=== PATIENT | male | born 1970 | race Caucasian/White ===

== ENCOUNTER 2019-02-10 17:34 | Inpatient (IN) | payer OTHER ==
[~2019-02-10] VITALS: Ht 175.3 cm; Wt 77.6 kg
[2019-02-10 17:35] VITALS: BP 102/55
[2019-02-10 17:49] LABS: HEMATOCRIT 48.6 % (42.0-52.0); HEMOGLOBIN 16.2 gm/dL (14.0-18.0); MCH 30.9 pg (26.0-34.0); MCHC 33.3 g/dL (28.0-37.0); MCV 92.9 fL (80.0-100.0); MPV 10.5 fl. (7.2-11.1); NUCLEATED RBCS 0 /100WBC; PLATELET COUNT* 213 thou/uL (150-400); RBC 5.23 mil/uL (4.50-6.00); RDW-CV 13.6 % (10.5-14.5); WBC 12.7 thou/uL (4.0-11.0)
[2019-02-10 17:59] LABS: APTT 32.9 Seconds (25.0-31.3); INR 1.1; PROTIME 11.6 Seconds (9.20-11.50)
[2019-02-10 18:06] LABS: ANION GAP 15 mmol/L (7-16); BUN 66 mg/dL (7-18); CALCIUM 8.9 mg/dL (8.5-10.1); CHLORIDE 100 mmol/L (98-107); CO2 24 mmol/L (21-32); CREATININE 4.5 mg/dL (0.6-1.3); GLUCOSE 89 mg/dL (70-99); POTASSIUM 5.5 mmol/L (3.5-5.1); SODIUM 139 mmol/L (136-145); TROPONIN-I LEVEL <0.06 ng/mL (<0.06)
[2019-02-10 18:08] LABS: ALBUMIN 2.6 g/dL (3.4-5.0); ALKALINE PHOSPHATASE 96 U/L (46-116); NT-PRO BRAIN NAT PEPTIDE 5718 pg/mL (<300); SGOT 42 U/L (15-37); SGPT 24 U/L (30-65); TOTAL BILIRUBIN 0.6 mg/dL (<0.1-1.0)
[2019-02-10 18:13] LABS: ABSOLUTE EOSINOPHILS 0.1 thou/uL (0.0-0.7); ABSOLUTE LYMPHOCYTES 0.8 thou/uL (0.8-5.3); ABSOLUTE MONOCYTES 0.8 thou/uL (0.0-1.2)
[2019-02-10 18:15] LABS: LARGE PLATELETS RARE; PLATELET ESTIMATE ADEQUATE
[2019-02-10 19:33] LABS: URINE BLOOD 3+ (Negative); URINE GLUCOSE-RANDOM NEGATIVE (Negative); URINE KETONES TRACE (Negative); URINE LEUKOCYTES-REFLEX NEGATIVE (Negative); URINE NITRITE-REFLEX NEGATIVE (Negative); URINE PROTEIN 2+ (Negative); URINE SPECIFIC GRAVITY >= 1.030 (1.005-1.030)
[2019-02-10 19:34] LABS: ICTOTEST (BILI CONFIRMATORY) Negative (Negative); URINE BILIRUBIN 2+ (Negative)
[2019-02-10 19:35] LABS: SQUAMOUS 4-10 Moderate /LPF (0-3); URINE CLARITY CLOUDY; URINE COLOR DARK YELLOW; URINE RBC 3-10 Few /HPF (0-2); URINE WBC-REFLEX 0-5 Rare /HPF (0-5)
[2019-02-10 19:36] LABS: CRYSTALS None Seen /LPF (None Seen); HYALINE CASTS 0-3 Few /LPF (None Seen); MUCUS 0-3 Light strn/LPF (None Seen)
[2019-02-10 20:10] VITALS: BP 109/70
[2019-02-11] VITALS (29 sets, daily range): BP systolic 90–136; BP diastolic 55–74
[2019-02-11 00:09] LABS: CALCIUM 7.2 mg/dL (8.5-10.1); CREATININE 3.6 mg/dL (0.6-1.3)
[2019-02-11 00:11] LABS: POTASSIUM 6.7 mmol/L (3.5-5.1)
[2019-02-11 05:05] LABS: MCH 30.4 pg (26.0-34.0); NUCLEATED RBCS 0 /100WBC
[2019-02-11 05:06] LABS: HEMATOCRIT 44.9 % (42.0-52.0); HEMOGLOBIN 14.5 gm/dL (14.0-18.0); MCHC 32.2 g/dL (28.0-37.0); MCV 94.3 fL (80.0-100.0); MPV 10.5 fl. (7.2-11.1); PLATELET COUNT* 229 thou/uL (150-400); RBC 4.76 mil/uL (4.50-6.00)
[2019-02-11 05:34] LABS: ALBUMIN 1.8 g/dL (3.4-5.0); CALCIUM 7.4 mg/dL (8.5-10.1); CREATININE 4.2 mg/dL (0.6-1.3); TOTAL BILIRUBIN 0.5 mg/dL (<0.1-1.0); TOTAL PROTEIN 5.7 g/dL (6.4-8.2)
[2019-02-11 05:36] LABS: BE -9.9 mmol/L (-2 to +3); PO2 115.3 mmHg (75.0-100.0)
[2019-02-11 05:39] LABS: PCO2 103.4 mmHg (35.0-45.0); pH 6.992 (7.340-7.450)
[2019-02-11 05:43] LABS: POTASSIUM 6.7 mmol/L (3.5-5.1)
[2019-02-11 06:13] LABS: ABSOLUTE EOSINOPHILS 0.1 thou/uL (0.0-0.7); ABSOLUTE LYMPHOCYTES 0.7 thou/uL (0.8-5.3); ABSOLUTE MONOCYTES 0.9 thou/uL (0.0-1.2); ABSOLUTE NEUTROPHILS 11.3 thou/uL (1.6-8.1)
[2019-02-11 06:23] LABS: PLATELET ESTIMATE ADEQUATE
[2019-02-11 06:25] LABS: ANISOCYTOSIS 1+; POIKILOCYTOSIS 1+
[2019-02-11 06:26] LABS: LARGE PLATELETS RARE
[2019-02-11 06:36] LABS: MAGNESIUM 2.5 mg/dL (1.8-2.4); PHOSPHORUS* 12.8 mg/dL (2.5-4.9)
[2019-02-11 06:57] LABS: BE -10.2 mmol/L (-2 to +3)
[2019-02-11 07:00] LABS: PCO2 72.7 mmHg (35.0-45.0); pH 7.082 (7.340-7.450)
[2019-02-11 08:46] LABS: BE -5.9 mmol/L (-2 to +3)
[2019-02-11 08:47] LABS: PCO2 54.9 mmHg (35.0-45.0); PO2 125.4 mmHg (75.0-100.0); pH 7.225 (7.340-7.450)
[2019-02-11 11:32] LABS: CALCIUM 7.3 mg/dL (8.5-10.1); CREATININE 3.8 mg/dL (0.6-1.3)
[2019-02-11 11:33] LABS: POTASSIUM 5.6 mmol/L (3.5-5.1)
[2019-02-11 12:06] LABS: BE -0.4 mmol/L (-2 to +3)
[2019-02-11 12:07] LABS: PCO2 67.9 mmHg (35.0-45.0); pH 7.245 (7.340-7.450)
[2019-02-11 15:28] LABS: BE -2.2 mmol/L (-2 to +3); PCO2 48.5 mmHg (35.0-45.0); PO2 101.3 mmHg (75.0-100.0); pH 7.318 (7.340-7.450)
--- NOTE | 2019-02-11 15:52 | EKG ---
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 TURNER : 1970 Requested By: Jesse Herrera Order Number: [id number] MD: Cas Uribe Measurements Intervals [place] Rate: 120 P: 70 AR: 123 QRS: 75 QRSD: 90 T: 21 QT: 281 QTc: 397 Interpretive Statements Sinus tachycardia Probable left atrial enlargement Borderline low voltage, extremity leads Possible left ventricular hypertrophy No previous ECG available for comparison Electronically Signed On 02-11-2019 15:52:14 CDT by Cas Uribe [email or web address] <ELECTRONICALLY SIGNED> By: Cas Uribe MD, [facility] 02/11/19 1552 1746 1746 Cas Uribe MD, [facility] /EPI
[2019-02-12] VITALS (51 sets, daily range): BP systolic 89–124; BP diastolic 53–76
[2019-02-12 04:19] LABS: ABSOLUTE EOSINOPHILS 0.1 thou/uL (0.0-0.7); ABSOLUTE LYMPHOCYTES 0.4 thou/uL (0.8-5.3); ABSOLUTE MONOCYTES 0.5 thou/uL (0.0-1.2); ABSOLUTE NEUTROPHILS 6.4 thou/uL (1.6-8.1); BASOPHILS 0.2 %; EOSINOPHILS 0.8 %; HEMATOCRIT 38.4 % (42.0-52.0); HEMOGLOBIN 12.9 gm/dL (14.0-18.0); LYMPHOCYTES 5.3 %; MCH 31.1 pg (26.0-34.0); MCHC 33.5 g/dL (28.0-37.0); MONOCYTES 7.1 %; MPV 9.8 fl. (7.2-11.1); NUCLEATED RBCS 0 /100WBC; POLYS 86.6 %; RBC 4.13 mil/uL (4.50-6.00); RDW-CV 14.3 % (10.5-14.5); WBC 7.4 thou/uL (4.0-11.0)
[2019-02-12 04:25] LABS: PLATELET COUNT* 138 thou/uL (150-400)
[2019-02-12 04:43] LABS: ALBUMIN 1.6 g/dL (3.4-5.0); CALCIUM 7.3 mg/dL (8.5-10.1); MAGNESIUM 2.4 mg/dL (1.8-2.4); PHOSPHORUS* 6.4 mg/dL (2.5-4.9); POTASSIUM 4.7 mmol/L (3.5-5.1); TOTAL BILIRUBIN 0.6 mg/dL (<0.1-1.0); TOTAL PROTEIN 5.4 g/dL (6.4-8.2)
[2019-02-12 05:29] LABS: CREATININE 2.6 mg/dL (0.6-1.3)
[2019-02-12 06:00] LABS: BE -5.4 mmol/L (-2 to +3); PCO2 48.5 mmHg (35.0-45.0); PO2 93.5 mmHg (75.0-100.0)
[2019-02-12 06:03] LABS: pH 7.268 (7.340-7.450)
[2019-02-12 13:40] LABS: CALCIUM 7.9 mg/dL (8.5-10.1); CREATININE 2.3 mg/dL (0.6-1.3); POTASSIUM 4.8 mmol/L (3.5-5.1)
--- NOTE | 2019-02-12 13:55 | 2DMMODE ---
[place] [address] 2 D/M-MODE ECHOCARDIOGRAM Name: MARCOS RAMIRES Room: [address] IN [facility]#: [id number] Admission: 02/10/19 Attend Phys: Diane Mari, Discharge: Date of : 68 Date of Service: 02/12/19 1355 Report #: [id number] THIS REPORT FOR: //name// APPROVED REPORT Study performed: 02/12/2019 09:15:18 EXAM: Comprehensive 2D, Doppler, and color-flow Echocardiogram Patient Location: In-Patient Room #: [facility] Status: routine BSA: 1.90 HR: 123 bpm BP: 113/68 mmHg Rhythm: NSR Other Information Study Quality: Good Indications runs of [facility] 2D Dimensions IVSd: 11.02 (7-11mm) LVOT Diam: 21.49 (18-24mm) LVDd: 48.31 mm PWd: 10.43 (7-11mm) Ascending Ao: 35.42 (22-36mm) LVDs: 26.18 (25-40mm) Aortic Root: 43.44 mm Aortic Valve AoV Peak Erasto.: 1.49 m/s AO Peak Gr.: 8.89 mmHg LVOT Max P.46 mmHg AO Mean Gr.: 5.47 mmHg LVOT Mean P.08 mmHg LVOT Max V: 1.27 m/s AO V2 VTI: 22.54 cm LVOT Mean V: 0.98 m/s SHELBY (VTI): 2.88 cm2 LVOT V1 VTI: 17.90 cm Mitral Valve E/A Ratio: 1.08 MV Decel. Time: 88.05 ms MV E Max Erasto.: 0.84 m/s MV PHT: 25.53 ms MVA (PHT): 8.62 [place] [address] 2 D/M-MODE ECHOCARDIOGRAM Name: MARCOS RAMIRES Room: [address] IN .R.#: [id number] Admission: 02/10/19 Attend Phys: Diane Mari, Discharge: Date of : 68 Date of Service: 02/12/19 1355 Report #: [id number] E/Lateral E': 4.42 E/Medial E': 3.23 Medial E' Erasto.: 0.26 m/s Lateral E' Erasto.: 0.19 m/s Pulmonary Valve PV Peak Erasto.: 1.20 m/s PV Peak Gr.: 5.74 mmHg Tricuspid Valve RAP Estimate: 5.00 mmHg TR Peak Gr.: 38.55 mmHg RVSP: 43.00 mmHg PA Pressure: 43.00 mmHg Left Ventricle The left ventricle is normal size. There is normal LV segmental wall motion. There is normal left ventricular wall thickness. Left ventricular systolic function is normal. The left ventricular ejection fraction is within the normal range. LVEF is 65-70%. The left ventricular diastolic function is normal. Right Ventricle The right ventricle is normal size. The right ventricular systolic function is normal. Atria The left atrium size is normal. The right atrium size is normal. Aortic Valve The aortic valve is normal in structure. No aortic regurgitation is present. There is no aortic valvular stenosis. Mitral Valve The mitral valve is normal in structure. There is no mitral valve regurgitation noted. No evidence of mitral valve stenosis. Tricuspid Valve The tricuspid valve is normal in structure. Mild tricuspid regurgitation. Moderate pulmonary hypertension. Pulmonic Valve The pulmonary valve is normal in structure. There is no pulmonic valvular regurgitation. Great Vessels The aortic root is normal in size. [place] [address] 2 D/M-MODE ECHOCARDIOGRAM Name: MARCOS RAMIRES Room: [address] IN [facility]#: [id number] Admission: 02/10/19 Attend Phys: Diane Mari, Discharge: Date of : 68 Date of Service: 02/12/19 1355 Report #: [id number] Pericardium There is no pericardial effusion. <Conclusion> The left ventricle is normal size. There is normal left ventricular wall thickness. Left ventricular systolic function is normal. The left ventricular ejection fraction is within the normal range. LVEF is 65-70%. The right ventricle is normal size. The left atrium size is normal. The aortic valve is normal in structure. The mitral valve is normal in structure. The tricuspid valve is normal in structure. Mild tricuspid regurgitation. Moderate pulmonary hypertension. There is no pericardial effusion. There is normal LV segmental wall motion. <ELECTRONICALLY SIGNED> By: Jerrell Parkinson MD, FACC 02/12/19 1355 1355 1355 Jerrell Parkinson MD, FACC /INF
[2019-02-12 17:46] LABS: BE -1.1 mmol/L (-2 to +3); PO2 103.1 mmHg (75.0-100.0)
[2019-02-12 17:54] LABS: PCO2 56.5 mmHg (35.0-45.0); pH 7.287 (7.340-7.450)
[2019-02-13] VITALS (57 sets, daily range): BP systolic 68–229; BP diastolic 8–124
[2019-02-13 06:08] LABS: ABSOLUTE EOSINOPHILS 0.2 thou/uL (0.0-0.7); ABSOLUTE LYMPHOCYTES 0.4 thou/uL (0.8-5.3); ABSOLUTE MONOCYTES 0.9 thou/uL (0.0-1.2); BASOPHILS 0.2 %; EOSINOPHILS 1.9 %; HEMATOCRIT 35.6 % (42.0-52.0); HEMOGLOBIN 11.9 gm/dL (14.0-18.0); LYMPHOCYTES 4.5 %; MCH 30.8 pg (26.0-34.0); MCHC 33.5 g/dL (28.0-37.0); MONOCYTES 10.2 %; MPV 10.3 fl. (7.2-11.1); NUCLEATED RBCS 0 /100WBC; PLATELET COUNT* 120 thou/uL (150-400); POLYS 83.2 %; RBC 3.87 mil/uL (4.50-6.00); RDW-CV 14.1 % (10.5-14.5); WBC 8.4 thou/uL (4.0-11.0)
[2019-02-13 06:27] LABS: ALBUMIN 1.5 g/dL (3.4-5.0); CALCIUM 8.4 mg/dL (8.5-10.1); CREATININE 1.8 mg/dL (0.6-1.3); PHOSPHORUS* 4.5 mg/dL (2.5-4.9); POTASSIUM 4.1 mmol/L (3.5-5.1)
[2019-02-13 09:41] LABS: BE 0.9 mmol/L (-2 to +3); PCO2 48.1 mmHg (35.0-45.0); PO2 123.7 mmHg (75.0-100.0); pH 7.364 (7.340-7.450)
--- NOTE | 2019-02-13 10:11 | CON ---
[address] [address] CONSULTATION Name: MARCOS RAMIRES Room: [address] IN M.R.#: [id number] Admission: 02/10/19 Attend Phys: Diane Mari, Discharge: Date of : 68 Report #: [id number] THIS REPORT FOR: //name// CC: Diane Mari FAM physician/PCP CONSULTING PHYSICIAN: Dr. Mari. REASON FOR CONSULTATION: Acute kidney injury. HISTORY OF PRESENT ILLNESS: A 48-year-old gentleman, who was admitted with abdominal pain, hypotension, sepsis with fever and leukocytosis. He had an admission creatinine of 4.5 and was found to have pneumoperitoneum. He was taken for emergent laparotomy and found to have a perforated duodenal ulcer. He had repair of the ulcer and abdominal washout done yesterday evening. He is currently intubated. He was hyperkalemic and did receive medical treatment to help with that. Urine output was initially sluggish, but is starting to improve. He has not required any vasopressors. REVIEW OF SYSTEMS: Constitutional, psych, heme, eyes, ENT, respiratory, cardiac, GI, , endocrine, all negative except as documented above and as best as can be ascertained. PAST MEDICAL HISTORY: No significant past medical problems. He does have a history of chronic back pain and back surgery. SOCIAL HISTORY: Positive for tobacco 1 pack per day. FAMILY HISTORY: Not pertinent in this 48-year-old gentleman. CURRENT MEDICATIONS: Reviewed. PHYSICAL EXAMINATION: VITAL SIGNS: Blood pressure is 104/58, pulse 118, respirations 18 and temperature 35. GENERAL: Intubated, sedated. EYES: Closed. EARS: Externally normal. CARDIOVASCULAR: Tachycardic. LUNGS: Clear anteriorly. ABDOMEN: He has an abdominal binder in place. LYMPHATICS: No significant pitting edema. NEUROLOGIC: Intubated and sedated. LABORATORY DATA: White cell count 13, hemoglobin 14.5, platelets 229. Most recent labs showed sodium of 145, potassium 5.6, chloride 106, bicarbonate 26, BUN 74, creatinine 3.8, glucose 117, calcium 7.3. [place] [address] CONSULTATION Name: MARCOS RAMIRES Room: [address] IN [facility]#: [id number] Admission: 02/10/19 Attend Phys: Diane Mari DO Discharge: Date of : 68 Report #: [id number] ASSESSMENT: 1. Acute kidney injury with an admission creatinine of 4.5. UA noted. CK was mildly elevated at 482. CT scan of kidneys were okay. This is in the setting of hypotension, sepsis and perforated duodenal ulcer. 2. Hyperkalemia. 3. Perforated duodenal ulcer with peritonitis. 4. Respiratory acidosis with a pH of 6.99, pCO2 of 103 and bicarbonate of 25. 5. Hypoalbuminemia with an albumin of 2.6. PLAN: 1. Urine output is improving. Potassium is coming down. Creatinine is trending down. We will have recheck labs at 1500. No indications for dialysis at this time. 2. He has respiratory acidosis. No indications for bicarbonate therapy from my standpoint. We will change his IV fluids to normal saline. 3. Check CK again in the a.m. 4. Antibiotics per primary service. 5. Caution Lovenox use in the setting of renal insufficiency. 6. The patient critically ill, we will follow closely. Thank you for requesting my opinion in the care and management of this patient. <ELECTRONICALLY SIGNED> By: Herman Dejesus MD 02/13/19 1011 1139 [id number] Dejesus MD /nt
[2019-02-14] VITALS (21 sets, daily range): BP systolic 89–134; BP diastolic 54–84
[2019-02-14 04:11] LABS: HEMATOCRIT 35.6 % (42.0-52.0); HEMOGLOBIN 11.8 gm/dL (14.0-18.0); MCH 30.6 pg (26.0-34.0); MCHC 33.3 g/dL (28.0-37.0); MCV 91.9 fL (80.0-100.0); MPV 9.5 fl. (7.2-11.1); RBC 3.87 mil/uL (4.50-6.00); RDW-CV 13.5 % (10.5-14.5); WBC 10.1 thou/uL (4.0-11.0)
[2019-02-14 04:21] LABS: ALBUMIN 1.6 g/dL (3.4-5.0); CALCIUM 7.9 mg/dL (8.5-10.1); CREATININE 1.2 mg/dL (0.6-1.3); MAGNESIUM 1.9 mg/dL (1.8-2.4); PHOSPHORUS* 2.5 mg/dL (2.5-4.9); POTASSIUM 4.4 mmol/L (3.5-5.1); TOTAL BILIRUBIN 0.7 mg/dL (<0.1-1.0); TOTAL PROTEIN 5.3 g/dL (6.4-8.2)
[2019-02-14 05:48] LABS: BE 2.2 mmol/L (-2 to +3); pH 7.381 (7.340-7.450)
[2019-02-15] VITALS (20 sets, daily range): BP systolic 91–153; BP diastolic 58–97
[2019-02-15 04:38] LABS: HEMATOCRIT 37.7 % (42.0-52.0); HEMOGLOBIN 12.5 gm/dL (14.0-18.0); MCH 30.4 pg (26.0-34.0); MCHC 33.2 g/dL (28.0-37.0); MCV 91.5 fL (80.0-100.0); MPV 10.2 fl. (7.2-11.1); RBC 4.12 mil/uL (4.50-6.00); RDW-CV 13.5 % (10.5-14.5); WBC 11.8 thou/uL (4.0-11.0)
[2019-02-15 05:33] LABS: ALBUMIN 1.4 g/dL (3.4-5.0); CALCIUM 7.8 mg/dL (8.5-10.1); CREATININE 0.8 mg/dL (0.6-1.3); MAGNESIUM 1.8 mg/dL (1.8-2.4); PHOSPHORUS* 2.7 mg/dL (2.5-4.9); POTASSIUM 3.8 mmol/L (3.5-5.1); TOTAL BILIRUBIN 1.3 mg/dL (<0.1-1.0)
[2019-02-16] VITALS (19 sets, daily range): BP systolic 101–154; BP diastolic 63–95
[2019-02-16 04:45] LABS: HEMATOCRIT 37.6 % (42.0-52.0); HEMOGLOBIN 12.4 gm/dL (14.0-18.0); MCH 30.1 pg (26.0-34.0); MCV 91.3 fL (80.0-100.0); MPV 10.1 fl. (7.2-11.1); RBC 4.12 mil/uL (4.50-6.00); RDW-CV 13.6 % (10.5-14.5); WBC 12.7 thou/uL (4.0-11.0)
[2019-02-16 05:32] LABS: ALBUMIN 1.3 g/dL (3.4-5.0); CALCIUM 7.8 mg/dL (8.5-10.1); CREATININE 0.8 mg/dL (0.6-1.3); MAGNESIUM 1.8 mg/dL (1.8-2.4); PHOSPHORUS* 2.9 mg/dL (2.5-4.9); POTASSIUM 3.9 mmol/L (3.5-5.1); TOTAL BILIRUBIN 2.5 mg/dL (<0.1-1.0); TOTAL PROTEIN 5.1 g/dL (6.4-8.2)
[2019-02-17] VITALS (19 sets, daily range): BP systolic 83–143; BP diastolic 41–94
[2019-02-17 03:45] LABS: HEMATOCRIT 36.1 % (42.0-52.0); MCH 30.1 pg (26.0-34.0); MCHC 33.3 g/dL (28.0-37.0); MCV 90.4 fL (80.0-100.0); MPV 10.3 fl. (7.2-11.1); RBC 3.99 mil/uL (4.50-6.00); RDW-CV 13.7 % (10.5-14.5); WBC 11.5 thou/uL (4.0-11.0)
[2019-02-17 05:07] LABS: ALBUMIN 1.2 g/dL (3.4-5.0); CALCIUM 7.8 mg/dL (8.5-10.1); CREATININE 0.9 mg/dL (0.6-1.3); PHOSPHORUS* 3.3 mg/dL (2.5-4.9); POTASSIUM 3.6 mmol/L (3.5-5.1); TOTAL BILIRUBIN 3.2 mg/dL (<0.1-1.0)
[2019-02-18] VITALS (24 sets, daily range): BP systolic 102–129; BP diastolic 60–80
[2019-02-18 03:38] LABS: HEMATOCRIT 37.8 % (42.0-52.0); HEMOGLOBIN 12.5 gm/dL (14.0-18.0); MCHC 33.2 g/dL (28.0-37.0); MCV 90.5 fL (80.0-100.0); NUCLEATED RBCS 0 /100WBC; RBC 4.17 mil/uL (4.50-6.00); RDW-CV 13.6 % (10.5-14.5); WBC 11.3 thou/uL (4.0-11.0)
[2019-02-18 03:48] LABS: PLATELET COUNT* 345 thou/uL (150-400)
[2019-02-18 03:57] LABS: CALCIUM 7.6 mg/dL (8.5-10.1); CREATININE 0.8 mg/dL (0.6-1.3); MAGNESIUM 1.6 mg/dL (1.8-2.4); PHOSPHORUS* 3.3 mg/dL (2.5-4.9); POTASSIUM 3.5 mmol/L (3.5-5.1)
[2019-02-18 05:30] LABS: ABSOLUTE EOSINOPHILS 0.2 thou/uL (0.0-0.7); ABSOLUTE MONOCYTES 1.5 thou/uL (0.0-1.2); ABSOLUTE NEUTROPHILS 8.6 thou/uL (1.6-8.1)
[2019-02-18 05:31] LABS: PLATELET ESTIMATE ADEQUATE
[2019-02-18 05:32] LABS: TOXIC GRANULATION 2+
[2019-02-19] VITALS (20 sets, daily range): BP systolic 108–138; BP diastolic 69–87
[2019-02-19 06:40] LABS: HEMATOCRIT 35.8 % (42.0-52.0); HEMOGLOBIN 12.1 gm/dL (14.0-18.0); MCH 30.7 pg (26.0-34.0); MCHC 33.9 g/dL (28.0-37.0); MCV 90.4 fL (80.0-100.0); RBC 3.96 mil/uL (4.50-6.00); RDW-CV 13.7 % (10.5-14.5); WBC 10.5 thou/uL (4.0-11.0)
[2019-02-19 06:59] LABS: ALBUMIN 1.2 g/dL (3.4-5.0); CALCIUM 7.4 mg/dL (8.5-10.1); CREATININE 0.7 mg/dL (0.6-1.3); MAGNESIUM 1.6 mg/dL (1.8-2.4); PHOSPHORUS* 3.2 mg/dL (2.5-4.9); POTASSIUM 3.5 mmol/L (3.5-5.1); TOTAL BILIRUBIN 3.1 mg/dL (<0.1-1.0); TOTAL PROTEIN 5.5 g/dL (6.4-8.2)
[2019-02-20] VITALS: BP 128/76
[2019-02-20 04:00] VITALS: BP 110/66
[2019-02-20 06:12] LABS: ALBUMIN 1.2 g/dL (3.4-5.0); CALCIUM 7.8 mg/dL (8.5-10.1); CREATININE 0.7 mg/dL (0.6-1.3); MAGNESIUM 1.7 mg/dL (1.8-2.4); PHOSPHORUS* 2.9 mg/dL (2.5-4.9); POTASSIUM 3.8 mmol/L (3.5-5.1); TOTAL BILIRUBIN 2.8 mg/dL (<0.1-1.0); TOTAL PROTEIN 5.8 g/dL (6.4-8.2)
[2019-02-20 11:49] VITALS: BP 102/50
[2019-02-20 15:28] VITALS: BP 155/82
--- NOTE | 2019-02-20 19:04 | OP ---
[address] [address] OPERATIVE REPORT Name: MARCOS RAMIRES Room: [address] IN M.R.#: [id number] Admission: 02/10/19 Attend Phys: Diane Mari DO Discharge: Date of : 68 Report #: [id number] THIS REPORT FOR: //name// CC: Diane Mari [facility] physician/PCP DATE OF SERVICE: 02/10/2019 PREOPERATIVE DIAGNOSIS: Perforated viscus. POSTOPERATIVE DIAGNOSES: Perforated duodenal ulcer, acute cholecystitis and biliary peritonitis. FINDINGS: There was a large anterior perforated duodenal ulcer. There was a significant amount of bile in the abdomen, probably at least 2 liters. There was biliary peritonitis. The gallbladder was hugely distended. SURGEON: Diane Mari DO. COSURGEON: Siva Perdue DO, PGY-2. OPERATION PERFORMED: Exploratory laparotomy, Emmett patch repair of perforated duodenal ulcer, placement of a gastrojejunostomy tube, cholecystostomy and abdominal washout. ANESTHESIA: General endotracheal and local. ESTIMATED BLOOD LOSS: 30 mL. DRAINS: A Yeboah, a NG tube, a GJ tube, a cholecystostomy tube and a 19-New Zealander MATTEO drain. COMPLICATIONS: None. CONDITION: Guarded. DISPOSITION: ICU on the vent. HISTORY OF PRESENT ILLNESS: The patient is a 48-year-old gentleman who presented to the ER on 02/10/2019 with a complaint of worsening abdominal pain. Unfortunately, he was very sick and was unable to really give us any history besides the fact that he had been fighting a sinus infection. He was found to be septic, hypotensive and tachycardic. Immediate workup in the Emergency Room indicated a large amount of free air in the abdomen indicative of a perforated viscus. CT scan revealed no further information besides the large amount of fluid in the abdomen and free air. He was [place] [address] OPERATIVE REPORT Name: MARCOS RAMIRES Room: [address]#: [id number] Admission: 02/10/19 Attend Phys: Diane Mari DO Discharge: Date of : 68 Report #: [id number]. Risks were discussed with the patient and his girlfriend at the bedside to include bleeding, infection, pain, scar formation, need for further surgery and risks of general anesthesia as we were not sure where the perforation was located. Consent was otherwise left vague. The patient verbally consented to the surgery, but was unable to sign consent. At that point, we proceeded with urgent surgery. DESCRIPTION OF PROCEDURE: The patient was brought to the operating room. He was laid supine on the operating room table. SCDs were placed on bilateral lower extremities. The patient was given Zosyn in the perioperative period. General endotracheal anesthesia was induced by anesthesia without difficulty. I then placed a left radial A-line, while my information technology assistant placed a right internal jugular central line. Please see our operative notes for those procedures. Abdomen was then prepped and draped in the standard sterile fashion. Timeout was performed to verify patient and procedure. A generous upper midline incision was made with a 10 blade. Cautery was used for hemostasis. Cautery was then used to dissect down to the fascia. Fascia was elevated between 2 Kochers. Fascia was incised using cautery. Finger was then gently introduced into the fascia and the fascia was incised along the length of the midline incision. Peritoneum was then tented between 2 Smita clamps and was incised using Metzenbaums. A large amount of biliary fluid was then released from the abdomen and was suctioned away. The peritoneum was then opened along the entire extent of our laparotomy. We then spent several minutes suctioning away a large amount of biliary fluid from the abdomen. There was evidence of biliary peritonitis and a large amount of fibrinous exudate over the entirety of the bowel. Food particles were also removed from the abdomen. Once we were finally able to visualize the intra-abdominal structures, a quick assessment of the abdomen revealed very large anterior perforation of the duodenum. Gallbladder was also hugely distended indicative of most likely cholecystitis secondary to the biliary peritonitis. A full exploration was then completed. The stomach appeared to be without any injury or disease. The small bowel was run from the ligament of Treitz to the terminal ileum. No injuries were identified, but there was a large amount of fibrinous exudate, which was carefully removed as we proceeded with our exploration. The entirety of the colon was either visualized or palpated. There was a large amount of stool in the colon, but no further disease identified. We then returned our attention to the area of the perforation. It was decided to proceed then with a Emmett patch repair. The patient was very skinny and did not have a large amount of omentum, but a vascularized omental flap was created using a LigaSure. It was easily brought up to the area of our duodenal perforation. Perforation itself was gently closed using two stitches of a 0 silk suture. A 0 silk suture x 3 was then used in a Lambert fashion for tacking down our omental flap. The omentum was brought to lay over the sutures and the sutures were then gently tied down forming our Emmett patch repair. It was decided that the patient would most likely need long-term nutrition past aside of this perforation, so a GJ tube was then introduced. A small christine was made in the left upper quadrant and the tube was [facility] [address] [place] [address] OPERATIVE REPORT Name: MARCOS RAMIRES Room: [address] IN .R.#: [id number] Admission: 02/10/19 Attend Phys: Diane Mari DO Discharge: Date of : 68 Report #: [id number] introduced into the abdomen. A pursestring was then created with a 0 silk suture. Cautery was used to enter the stomach. The GJ was introduced through our enterotomy and was passed easily into the duodenum. The stomach was then sutured to the anterior abdominal wall using three interrupted stitches of 0 silk suture. The balloon was inflated and the GJ was placed taut to the abdominal wall. The gallbladder was again inspected and again appeared to be hugely distended and had obvious cholecystitis. I then proceeded with a cholecystostomy tube placement. A pigtail 8-New Zealander catheter was brought into the field. A small tunnel was made using the needle in the right upper quadrant and the pigtail was passed without any difficulty. It was then introduced into the gallbladder and the suture was pulled creating the pigtail. We had excellent drainage of bile and no intra-abdominal leakage of any bile. This was then sutured into place using a 3-0 nylon stitch. Abdomen was then copiously irrigated with at least 6 liters of warm saline. Any further debris or food particles were carefully removed. Small bowel was again run from the ligament of Treitz to the terminal ileum with no findings of any injuries. A 19-New Zealander Alejandro drain was then introduced through the right lower quadrant and was brought to lay right over the area of our repair of the perforated duodenal ulcer. NG tube was also palpated in the stomach and appeared to be in good position. Fascia was then closed in a running fashion using 2 stitches of a 2-0 PDS with excellent approximation of the fascia. Subcutaneous tissues were also copiously irrigated until clear. The skin was closed with jacob. All drains were then sutured in place using nylon. A 20 mL of 0.5% Marcaine were injected along our incision. Incision was then cleansed and covered with 4 x 4s, ABD. All drains were covered with 4 x 4s. Binder was placed in the operating room. The patient remained on the ventilator as he was unstable and was escorted to the ICU in guarded condition. <ELECTRONICALLY SIGNED> By: Diane Mari DO 02/20/19 1904 1506 [id number] Mari DO /marlen
[2019-02-20 19:30] VITALS: BP 132/86
[2019-02-21] VITALS (7 sets, daily range): BP systolic 123–185; BP diastolic 61–90
[2019-02-21 06:22] LABS: CALCIUM 8.5 mg/dL (8.5-10.1); CREATININE 0.7 mg/dL (0.6-1.3); MAGNESIUM 1.7 mg/dL (1.8-2.4); PHOSPHORUS* 3.1 mg/dL (2.5-4.9)
[2019-02-22] VITALS: BP 144/84; BP 157/84
[2019-02-22 04:00] VITALS: BP 151/88
[2019-02-22 05:59] LABS: ALBUMIN 1.5 g/dL (3.4-5.0); CALCIUM 8.1 mg/dL (8.5-10.1); CREATININE 0.7 mg/dL (0.6-1.3); MAGNESIUM 1.9 mg/dL (1.8-2.4); PHOSPHORUS* 3.4 mg/dL (2.5-4.9); POTASSIUM 3.9 mmol/L (3.5-5.1); TOTAL BILIRUBIN 2.3 mg/dL (<0.1-1.0); TOTAL PROTEIN 6.9 g/dL (6.4-8.2)
[2019-02-22 08:22] VITALS: BP 158/93
[2019-02-22 08:39] LABS: HEMATOCRIT 36.5 % (42.0-52.0); HEMOGLOBIN 12.2 gm/dL (14.0-18.0); MCH 29.8 pg (26.0-34.0); MCHC 33.4 g/dL (28.0-37.0); MCV 89.3 fL (80.0-100.0); MPV 9.9 fl. (7.2-11.1); RBC 4.09 mil/uL (4.50-6.00); RDW-CV 13.8 % (10.5-14.5); WBC 8.2 thou/uL (4.0-11.0)
[2019-02-22 12:00] VITALS: BP 158/86
[2019-02-22 16:08] VITALS: BP 167/84
[2019-02-22 20:00] VITALS: BP 133/88
[2019-02-23] VITALS: BP 144/84
[2019-02-23 04:00] VITALS: BP 152/64
[2019-02-23 05:36] LABS: CALCIUM 8.3 mg/dL (8.5-10.1); CREATININE 0.7 mg/dL (0.6-1.3); PHOSPHORUS* 3.7 mg/dL (2.5-4.9); POTASSIUM 4.3 mmol/L (3.5-5.1)
[2019-02-23 08:00] VITALS: BP 155/89
[2019-02-23 12:00] VITALS: BP 136/75
[2019-02-23 16:00] VITALS: BP 163/82
[2019-02-23 20:30] VITALS: BP 165/80
[2019-02-24 00:30] VITALS: BP 152/87
[2019-02-24 03:58] VITALS: BP 164/87
[2019-02-24 07:32] LABS: CREATININE 0.7 mg/dL (0.6-1.3); MAGNESIUM 1.7 mg/dL (1.8-2.4); PHOSPHORUS* 3.9 mg/dL (2.5-4.9); POTASSIUM 4.3 mmol/L (3.5-5.1)
[2019-02-24 08:00] VITALS: BP 107/79
[2019-02-24 11:38] VITALS: BP 169/83
[2019-02-24 16:00] VITALS: BP 157/80
[2019-02-24 20:00] VITALS: BP 138/93
[2019-02-25] VITALS: BP 132/94
[2019-02-25 04:00] VITALS: BP 124/89
[2019-02-25 06:45] LABS: HEMATOCRIT 36.5 % (42.0-52.0); HEMOGLOBIN 12.3 gm/dL (14.0-18.0); MCH 30.1 pg (26.0-34.0); MCHC 33.7 g/dL (28.0-37.0); MCV 89.4 fL (80.0-100.0); MPV 8.9 fl. (7.2-11.1); RBC 4.08 mil/uL (4.50-6.00); RDW-CV 13.9 % (10.5-14.5)
[2019-02-25 06:59] LABS: CALCIUM 8.2 mg/dL (8.5-10.1); CREATININE 0.7 mg/dL (0.6-1.3); MAGNESIUM 1.9 mg/dL (1.8-2.4); PHOSPHORUS* 3.3 mg/dL (2.5-4.9); POTASSIUM 4.2 mmol/L (3.5-5.1)
[2019-02-25 07:30] VITALS: BP 135/88
[2019-02-25 12:57] VITALS: BP 113/81
[2019-02-25 16:24] VITALS: BP 122/82
[2019-02-26] VITALS: BP 123/90
[2019-02-26 04:00] VITALS: BP 119/85
[2019-02-26 05:58] LABS: CALCIUM 8.3 mg/dL (8.5-10.1); CREATININE 0.6 mg/dL (0.6-1.3); MAGNESIUM 1.7 mg/dL (1.8-2.4); PHOSPHORUS* 3.5 mg/dL (2.5-4.9); POTASSIUM 3.9 mmol/L (3.5-5.1)
[2019-02-26 08:21] VITALS: BP 145/91
[2019-02-26 12:09] VITALS: BP 140/95
[2019-02-26 16:56] VITALS: BP 148/79
[2019-02-26 19:50] VITALS: BP 119/81
[2019-02-27] VITALS: BP 116/81
[2019-02-27 04:00] VITALS: BP 126/80
[2019-02-27 06:00] LABS: CREATININE 0.7 mg/dL (0.6-1.3); MAGNESIUM 1.8 mg/dL (1.8-2.4); PHOSPHORUS* 3.2 mg/dL (2.5-4.9); POTASSIUM 4.2 mmol/L (3.5-5.1)
[2019-02-27 08:07] VITALS: BP 107/73
[2019-02-27 11:36] VITALS: BP 112/77
[2019-02-27 15:22] VITALS: BP 121/83
[2019-02-27 20:00] VITALS: BP 119/83
[2019-02-28] VITALS: BP 116/72
[2019-02-28 04:00] VITALS: BP 112/74
[2019-02-28 04:33] LABS: CALCIUM 8.3 mg/dL (8.5-10.1); CREATININE 0.6 mg/dL (0.6-1.3); MAGNESIUM 1.7 mg/dL (1.8-2.4); PHOSPHORUS* 3.2 mg/dL (2.5-4.9); POTASSIUM 4.1 mmol/L (3.5-5.1)
[2019-02-28 07:48] VITALS: BP 117/72
[2019-02-28 11:41] VITALS: BP 109/73
[2019-02-28 20:38] VITALS: BP 101/63
[2019-03-01] VITALS: BP 109/74
[2019-03-01 07:50] VITALS: BP 112/74
[2019-03-01 12:00] VITALS: BP 106/74
[2019-03-01 19:45] VITALS: BP 114/79
[2019-03-02 03:09] VITALS: BP 116/80
[2019-03-02 04:00] VITALS: BP 113/73
[2019-03-02 07:50] VITALS: BP 112/82
[2019-03-02 19:40] VITALS: BP 113/76
[2019-03-03 04:56] VITALS: BP 119/82
[2019-03-03 06:01] LABS: HEMATOCRIT 36.7 % (42.0-52.0); HEMOGLOBIN 12.3 gm/dL (14.0-18.0); MCHC 33.5 g/dL (28.0-37.0); MCV 89.6 fL (80.0-100.0); MPV 9.6 fl. (7.2-11.1); RBC 4.1 mil/uL (4.50-6.00); RDW-CV 13.4 % (10.5-14.5); WBC 10.5 thou/uL (4.0-11.0)
[2019-03-03 06:12] LABS: CALCIUM 8.3 mg/dL (8.5-10.1); CREATININE 0.7 mg/dL (0.6-1.3); MAGNESIUM 1.6 mg/dL (1.8-2.4); PHOSPHORUS* 2.8 mg/dL (2.5-4.9); POTASSIUM 3.6 mmol/L (3.5-5.1); TOTAL BILIRUBIN 0.7 mg/dL (<0.1-1.0); TOTAL PROTEIN 6.5 g/dL (6.4-8.2)
[2019-03-03 08:01] VITALS: BP 115/71
[2019-03-03 15:18] VITALS: BP 105/71
[2019-03-03 20:00] VITALS: BP 113/80
[2019-03-04 08:00] VITALS: BP 117/84
[2019-03-04 16:56] VITALS: BP 128/89
[2019-03-04 21:00] VITALS: BP 132/89
[2019-03-05] VITALS: BP 121/88
[2019-03-05 08:00] VITALS: BP 110/81
[2019-03-05 16:28] VITALS: BP 119/82
[2019-03-05 21:54] VITALS: BP 115/64
[2019-03-06 08:30] VITALS: BP 116/79
[2019-03-06 12:26] VITALS: BP 116/79
[2019-03-06] MEDS ORDERED: LOPRESSOR25 PO (13:44)
[2019-03-06 21:40] VITALS: BP 109/78
[2019-03-07] MEDS ORDERED: VALIUM5 MG PO (04:58)
[2019-03-07 08:00] VITALS: BP 108/74
[2019-03-07 09:42] VITALS: BP 116/79
[2019-03-07] MEDS ORDERED: OXYCODONE HCL 55 MG PO (10:19)
[2019-03-07 10:21] VITALS: BP 116/79
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
== END 2019-03-07 10:57 | disposition home health service (06) | DRG 853 ==
LOC: M.ERS 17:34 → M.TBA-ER 19:41 → M.2W 19:41 → M.ICU 19:41 → M.TBA-ER 22:25 → M.ICU 22:55 → M.2W 02-19 20:03 → M.ORTHSURG 03-03 07:46
PROVIDERS: Emergency Medicine Emergency Medical Services; Internal Medicine Nephrology; Surgery; ADMIT Surgery
PROC: 03HY32Z Insertion of Monitoring Device into Upper Artery, Percutaneous Approach (ICD-10-PCS; principal; 2019-02-10)
PROC: 02HV33Z Insertion of Infusion Device into Superior Vena Cava, Percutaneous Approach (ICD-10-PCS; principal; 2019-02-10)
PROC: 0DH60UZ Insertion of Feeding Device into Stomach, Open Approach (ICD-10-PCS; principal; 2019-02-10)
PROC: 5A1945Z Respiratory Ventilation, 24-96 Consecutive Hours (ICD-10-PCS; principal; 2019-02-10)
PROC: 0D9670Z Drainage of Stomach with Drainage Device, Via Natural or Artificial Opening (ICD-10-PCS; principal; 2019-02-10)
PROC: 0BH17EZ Insertion of Endotracheal Airway into Trachea, Via Natural or Artificial Opening (ICD-10-PCS; principal; 2019-02-10)
PROC: B548ZZA Ultrasonography of Superior Vena Cava, Guidance (ICD-10-PCS; principal; 2019-02-10)
PROC: 0FT40ZZ Resection of Gallbladder, Open Approach (ICD-10-PCS; principal; 2019-02-10)
PROC: 0DU907Z Supplement Duodenum with Autologous Tissue Substitute, Open Approach (ICD-10-PCS; principal; 2019-02-10)
PROC: 05HY33Z Insertion of Infusion Device into Upper Vein, Percutaneous Approach (ICD-10-PCS; 2019-02-17)
DX: A41.9 Sepsis, unspecified organism (principal); K26.5 Chronic or unspecified duodenal ulcer with perforation; J96.90 Respiratory failure, unspecified, unspecified whether with hypoxia or hypercapnia; N17.9 Acute kidney failure, unspecified; E87.0 Hyperosmolality and hypernatremia; G89.29 Other chronic pain; M54.9 Dorsalgia, unspecified; F17.210 Nicotine dependence, cigarettes, uncomplicated; E87.5 Hyperkalemia; E88.09 Other disorders of plasma-protein metabolism, not elsewhere classified; I95.9 Hypotension, unspecified; E16.2 Hypoglycemia, unspecified; Z79.899 Other long term (current) drug therapy

== ENCOUNTER → 2019-04-15 | Outpatient (CLI) | payer OTHER ==
[~2019-04-15] MED LIST: LOPRESSOR25 PO; OXYCODONE HCL 55 MG PO; VALIUM5 MG PO
[2019-04-15 15:23] LABS: CREATININE 0.8 mg/dL (0.6-1.3)
== END ==
LOC: M.LAB 14:30 → M.CT 15:30
PROVIDERS: Surgery
DX: K26.5 Chronic or unspecified duodenal ulcer with perforation (principal)

== ENCOUNTER → 2019-04-23 | Outpatient (CLI) | payer OTHER ==
[~2019-04-23] VITALS: Ht 190.5 cm; Wt 70.3 kg
[2019-04-23] VITALS (8 sets, daily range): BP systolic 127–154; BP diastolic 82–92
[2019-04-23 11:15] LABS: HEMATOCRIT 34.5 % (42.0-52.0); HEMOGLOBIN 11.4 gm/dL (14.0-18.0); MCH 28.8 pg (26.0-34.0); MCHC 32.9 g/dL (28.0-37.0); MCV 87.4 fL (80.0-100.0); MPV 8.1 fl. (7.2-11.1); RBC 3.95 mil/uL (4.50-6.00); RDW-CV 15.3 % (10.5-14.5); WBC 9.8 thou/uL (4.0-11.0)
[2019-04-23 11:25] LABS: PROTIME 10.3 Seconds (9.20-11.50)
[2019-04-23 11:29] LABS: CALCIUM 9.1 mg/dL (8.5-10.1); CREATININE 0.8 mg/dL (0.6-1.3); POTASSIUM 3.9 mmol/L (3.5-5.1)
== END | disposition home or self-care (01) ==
LOC: M.INT 09:00
PROVIDERS: Radiology Diagnostic Radiology
DX: T81.43XA Infection following a procedure, organ and space surgical site, initial encounter (principal); B96.20 Unspecified Escherichia coli [E. coli] as the cause of diseases classified elsewhere; K65.1 Peritoneal abscess; I10 Essential (primary) hypertension; F41.9 Anxiety disorder, unspecified; G89.29 Other chronic pain; F17.210 Nicotine dependence, cigarettes, uncomplicated; Z98.890 Other specified postprocedural states; Z79.899 Other long term (current) drug therapy; Y83.8 Other surgical procedures as the cause of abnormal reaction of the patient, or of later complication, without mention of misadventure at the time of the procedure; Y92.89 Other specified places as the place of occurrence of the external cause; Z79.01 Long term (current) use of anticoagulants

== ENCOUNTER → 2019-05-02 | Outpatient (CLI) | payer OTHER ==
--- NOTE | 2019-05-05 08:49 | NUR ---
late entry: Patient was brought in to inject and remove drain. Injected drain and abscess was determined to be resolved. Dismissed patient from IR suite.
== END | disposition home or self-care (01) ==
LOC: M.INT 07:17
DX: Z48.03 Encounter for change or removal of drains (principal); Z79.899 Other long term (current) drug therapy; Z98.890 Other specified postprocedural states

== ENCOUNTER 2019-06-16 01:43 | Inpatient (IN) | payer OTHER ==
[~2019-06-16] VITALS: Ht 190.5 cm; Wt 71.5 kg
[2019-06-16 01:49] VITALS: BP 162/104
[2019-06-16] MEDS ORDERED: PROTONIX 20 MG20 M1 PO (01:55)
[2019-06-16 02:14] LABS: ABSOLUTE BASOPHILS 0.1 thou/uL (0.0-0.2); ABSOLUTE LYMPHOCYTES 1.4 thou/uL (0.8-5.3); ABSOLUTE MONOCYTES 0.7 thou/uL (0.0-1.2); ABSOLUTE NEUTROPHILS 11.1 thou/uL (1.6-8.1); BASOPHILS 0.6 %; EOSINOPHILS 0.4 %; HEMATOCRIT 34.2 % (42.0-52.0); HEMOGLOBIN 11.2 gm/dL (14.0-18.0); LYMPHOCYTES 10.8 %; MCH 27.9 pg (26.0-34.0); MCHC 32.8 g/dL (28.0-37.0); MONOCYTES 5.2 %; MPV 8.6 fl. (7.2-11.1); NUCLEATED RBCS 0 /100WBC; PLATELET COUNT* 619 thou/uL (150-400); RBC 4.02 mil/uL (4.50-6.00); RDW-CV 16.5 % (10.5-14.5); WBC 13.3 thou/uL (4.0-11.0)
[2019-06-16 02:26] LABS: ANION GAP 10 mmol/L (7-16); BUN 15 mg/dL (7-18); CALCIUM 9.1 mg/dL (8.5-10.1); CHLORIDE 96 mmol/L (98-107); CO2 31 mmol/L (21-32); CREATININE 0.9 mg/dL (0.6-1.3); GLUCOSE 117 mg/dL (70-99); POTASSIUM 3.2 mmol/L (3.5-5.1); SODIUM 137 mmol/L (136-145)
[2019-06-16 02:35] LABS: ALBUMIN 3.6 g/dL (3.4-5.0); ALKALINE PHOSPHATASE 162 U/L (46-116); LIPASE 76 U/L (73-393); SGOT 13 U/L (15-37); SGPT 18 U/L (30-65); TOTAL BILIRUBIN 0.1 mg/dL (<0.1-1.0); TOTAL PROTEIN 8.3 g/dL (6.4-8.2); TROPONIN-I LEVEL <0.06 ng/mL (<0.06)
[2019-06-16 03:49] LABS: URINE BILIRUBIN NEGATIVE (Negative); URINE BLOOD NEGATIVE (Negative); URINE CLARITY CLEAR; URINE COLOR YELLOW; URINE GLUCOSE-RANDOM NEGATIVE (Negative); URINE KETONES NEGATIVE (Negative); URINE LEUKOCYTES-REFLEX NEGATIVE (Negative); URINE NITRITE-REFLEX NEGATIVE (Negative); URINE PROTEIN NEGATIVE (Negative); URINE UROBILINOGEN 0.2 E.U./dl (0.2-1.0)
[2019-06-16 05:30] VITALS: BP 166/95
[2019-06-16 06:00] VITALS: BP 171/90
[2019-06-16 07:35] VITALS: BP 150/89
--- NOTE | 2019-06-16 07:47 | NUR ---
Admission to floor at approximately 0555. He has mid abdominal pain that radiates to his rt back. He states the pain is a 10/10 and has been going on since his dismissal from the hospital in May for hernia repair. He has a midline abdominal, healed incision. He had 150mcg of fentanyl,zofran 4mg and compazine 10 mg right before he came to the floor in the ED. he kept saying he had pain 10/10 at the start of my assessment, I asked if he could wait until I had finished setting up his IV and he just kept saying it. He did recieve morphine 8mg at about 0615. He appears comfortable but he is still rating pain 10/10. He was upset with admission questiopns because he said he already answered theses questions. his IV was alarming and he was upset and said why did he have to have IV fluids and why did they have to stick him with needles so much. He requested somethign to have emesis so an emesis bag wasa given. He requested another one and taht was given also. with surgery did see him this am. He did request water x 2 and was told he couldn't have anything to eat or drink. vitals were stable.
[2019-06-16] MEDS ORDERED: BENTYL 10 MG CA10 MG PO (11:42)
[2019-06-16] MEDS ORDERED: ZAROXOLYN 5MG TA5 MG PO (11:43)
[2019-06-16] MEDS ORDERED: PERCOCET 10-321 EAC1 PO (11:45)
[2019-06-16 16:52] VITALS: BP 161/90
--- NOTE | 2019-06-16 17:27 | NUR ---
PT GIVEN DISCHARGE ORDERS, PT RESTING IN ROOM. PT C/O PAIN, MEDS GIVEN ORDERED. PT TOLERATING CLEAR LIQUID DIET. FALL RISK PRECAUTIONS IN PLACE. HOURLY ROUNDING COMPLETED WILL CONTINUE TO MONITOR.
[2019-06-16 20:00] VITALS: BP 165/99
--- NOTE | 2019-06-17 05:59 | NUR ---
PT AWAKE MUCH OF THE NIGHT, REQUESTING AND RECEIVING IV PAIN MED EVERY 2 HOURS FOR CO ABD PAIN 10/. PT STATES HE HAD AN EPISODE OF N/V, DENIES NEED FOR ZOFRAN. LAC IVF INFUSING PER PUMP, ABX GIVEN ORDERED. NO LABS THIS MORNING. NICOTINE PATCH OBTAINED AND GIVEN PER PT REQUEST. USING URINAL TO VOID, UP TO BSC FOR BM. ABLE TO USE CALL LITE AND MAKE NEEDS KNOWN. SURGERY CONSULTING.
[2019-06-17 07:14] LABS: HEMATOCRIT 28.1 % (42.0-52.0); HEMOGLOBIN 9.5 gm/dL (14.0-18.0); MCH 28.5 pg (26.0-34.0); MCHC 33.6 g/dL (28.0-37.0); MPV 8.1 fl. (7.2-11.1); RBC 3.31 mil/uL (4.50-6.00); RDW-CV 16.4 % (10.5-14.5); WBC 9.8 thou/uL (4.0-11.0)
[2019-06-17 07:28] LABS: ALBUMIN 2.9 g/dL (3.4-5.0); CALCIUM 8.4 mg/dL (8.5-10.1); CREATININE 0.5 mg/dL (0.6-1.3); MAGNESIUM 1.7 mg/dL (1.8-2.4); POTASSIUM 3.2 mmol/L (3.5-5.1); TOTAL BILIRUBIN 0.1 mg/dL (<0.1-1.0); TOTAL PROTEIN 6.7 g/dL (6.4-8.2)
[2019-06-17] MEDS ORDERED: FLAGYL500 M1 PO (09:51)
[2019-06-17] MEDS ORDERED: CIPRO500 MG PO (09:51)
[2019-06-17] MEDS ORDERED: CARAFATE 11 GM/10 M1 PO (10:11)
[2019-06-17 10:16] VITALS: BP 148/96
--- NOTE | 2019-06-17 10:27 | EKG ---
[place] [address] ELECTROCARDIOGRAM REPORT Name: MARCOS RAMIRES Room: [address] ADM IN .R.#: [id number] Admission: 06/16/19 Attend Phys: Brayan Dhillon MD Discharge: Date of : 68 Report #: [id number] THIS REPORT FOR: //name// [facility] ED Test Date: 2019-06-16 Test Time: 02:11:24 Pat Name: MARCOS RAMIRES Department: Room: [facility] Gender: Hand Sander: VIKRAM : 1970 Requested By: Jesse Herrera Order Number: [id number] MD: Cas Uribe Measurements Intervals [place] Rate: 81 P: 73 WI: 145 QRS: 46 QRSD: 90 T: 48 QT: 365 QTc: 424 Interpretive Statements Sinus rhythm Compared to ECG 02/10/2019 17:46:14 Sinus tachycardia no longer present Electronically Signed On 06-17-2019 10:27:35 CDT by Cas Uribe [email or web address] <ELECTRONICALLY SIGNED> By: Cas Uribe MD, [facility] 06/17/19 1027 0 0 Cas Uribe MD, [facility] /EPI
[2019-06-17 15:38] VITALS: BP 146/89
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
--- NOTE | 2019-06-17 16:56 | NUR ---
PT REMAINED ALERT AND ORIENTED. PT C/O PAIN, MEDS GIVEN TOLERATED. FALL RISK PRECAUTIONS IN PLACE. NEW IV IN RT FOREARM. HOURLY ROUNDING COMPLETED. WILL CONTINUE TO MONITOR.
[2019-06-17 20:00] VITALS: BP 136/72
[2019-06-18 04:29] LABS: CALCIUM 8.7 mg/dL (8.5-10.1); CREATININE 0.7 mg/dL (0.6-1.3); MAGNESIUM 1.8 mg/dL (1.8-2.4); PHOSPHORUS* 3.2 mg/dL (2.5-4.9); POTASSIUM 3.6 mmol/L (3.5-5.1)
--- NOTE | 2019-06-18 05:18 | NUR ---
PT AWAKE MUCH OF THE NIGHT TONIGHT, TAKING SMALL NAPS AFTER PAIN MEDICINE. CO ABD PAIN 10/10 MOST OF THE NIGHT, TALKING CALMLY, LYING STILL AND DOES NOT APPEAR TO BE IN GREAT DISTRESS. RFA IVF INFUSING PER PUMP, ABX GIVEN ORDERED. TOLERATING CLEAR LIQUIDS WITHOUT N/V OVERNIGHT. RECEIVING PO AND IV BREAKTHROUGH PAIN MEDS OVERNIGHT. AM LABS DRAWN. USING URINAL TO VOID. ABLE TO USE CALL LITE AND MAKE NEEDS KNOWN.
[2019-06-18 07:20] VITALS: BP 146/89
[2019-06-18] MEDS ORDERED: PHENERGAN 25 MG25 M1 PO (09:48)
[2019-06-18 10:21] VITALS: BP 146/89
[2019-06-18] MEDS ORDERED: PROTONIX40 M1 PO (10:23)
--- NOTE | 2019-06-18 11:20 | NUR ---
PT GIVEN DISCHARGE INFORMATION, CARE NOTES, AND PRESCRIPTIONS. IV REMOVED. PT TOLERATED DIET. FALL RISK PRECAUTIONS IN PLACE. HOURLY ROUNDING COMPLETED. PRESCRIPTIONS CALLED IN EXCEPT FOR NARCOTIC. PT LEFT AMBULATORY WITH NURSING STAFF TO HOME.
[2019-06-18 11:21] VITALS: BP 146/89
== END 2019-06-18 11:19 | disposition home or self-care (01) | DRG 381 ==
LOC: M.ERS 01:43 → M.ORTHSURG 04:16 → M.TBA-ER 04:16 → M.ORTHSURG 05:33
PROVIDERS: Emergency Medicine Emergency Medical Services; Surgery; ADMIT Internal Medicine
DX: K31.5 Obstruction of duodenum (principal); K86.3 Pseudocyst of pancreas; E44.1 Mild protein-calorie malnutrition; Z68.1 Body mass index [BMI] 19.9 or less, adult; K63.0 Abscess of intestine; K26.9 Duodenal ulcer, unspecified as acute or chronic, without hemorrhage or perforation; I10 Essential (primary) hypertension; D72.829 Elevated white blood cell count, unspecified; F41.9 Anxiety disorder, unspecified; G89.29 Other chronic pain; M54.9 Dorsalgia, unspecified; K21.9 Gastro-esophageal reflux disease without esophagitis; Z87.891 Personal history of nicotine dependence; Z80.1 Family history of malignant neoplasm of trachea, bronchus and lung

== ENCOUNTER 2019-08-05 23:41 | Inpatient (IN) | payer OTHER ==
[~2019-08-05] VITALS: Ht 190.5 cm; Wt 79.4 kg
--- NOTE | ~2019-08-05 | PROC ---
[address] [address] PROCEDURE REPORT Name: MARCOS RAMIRES Room: [address] IN .R.#: [id number] Admission: 08/06/19 Attend Phys: Freddy Lange MD Discharge: Date of : 68 Report #: [id number] THIS REPORT FOR: //name// For GI report, please see the Provation report in Perceptive 7 content. By: 0648Medical Records Staff DARWIN /NESSA
[~2019-08-05 23:41] MED LIST changes: +BENTYL 10 MG CA10 MG PO; +CARAFATE 11 GM/10 M1 PO; +CIPRO500 MG PO; +FLAGYL500 M1 PO; +PERCOCET 10-321 EAC1 PO; +PHENERGAN 25 MG25 M1 PO; +PROTONIX 20 MG20 M1 PO; +PROTONIX40 M1 PO; +ZAROXOLYN 5MG TA5 MG PO
[2019-08-06 00:07] VITALS: BP 147/104
[2019-08-06] MEDS ORDERED: CLARITIN10 MG PO (00:11)
[2019-08-06 01:48] LABS: ABSOLUTE BASOPHILS 0.1 thou/uL (0.0-0.2); ABSOLUTE EOSINOPHILS 0.2 thou/uL (0.0-0.7); ABSOLUTE LYMPHOCYTES 1.3 thou/uL (0.8-5.3); ABSOLUTE MONOCYTES 0.5 thou/uL (0.0-1.2); ABSOLUTE NEUTROPHILS 7.8 thou/uL (1.6-8.1); BASOPHILS 0.7 %; EOSINOPHILS 1.9 %; HEMATOCRIT 33.7 % (42.0-52.0); LYMPHOCYTES 12.7 %; MCH 25.8 pg (26.0-34.0); MCHC 32.7 g/dL (28.0-37.0); MCV 78.9 fL (80.0-100.0); MONOCYTES 5.1 %; MPV 9.6 fl. (7.2-11.1); NUCLEATED RBCS 0 /100WBC; PLATELET COUNT* 349 thou/uL (150-400); POLYS 79.6 %; RBC 4.27 mil/uL (4.50-6.00); RDW-CV 17.5 % (10.5-14.5); WBC 9.9 thou/uL (4.0-11.0)
[2019-08-06 01:50] LABS: CALCIUM 9.7 mg/dL (8.5-10.1); CREATININE 0.9 mg/dL (0.6-1.3); POTASSIUM 4.3 mmol/L (3.5-5.1)
[2019-08-06 01:54] LABS: ALBUMIN 3.5 g/dL (3.4-5.0); TOTAL BILIRUBIN 0.2 mg/dL (<0.1-1.0); TOTAL PROTEIN 7.6 g/dL (6.4-8.2)
[2019-08-06 03:01] LABS: URINE BILIRUBIN NEGATIVE (Negative); URINE BLOOD NEGATIVE (Negative); URINE CLARITY CLEAR; URINE COLOR YELLOW; URINE GLUCOSE-RANDOM NEGATIVE (Negative); URINE KETONES NEGATIVE (Negative); URINE LEUKOCYTES-REFLEX NEGATIVE (Negative); URINE NITRITE-REFLEX NEGATIVE (Negative); URINE PROTEIN NEGATIVE (Negative); URINE SPECIFIC GRAVITY <= 1.005 (1.005-1.030); URINE UROBILINOGEN 0.2 E.U./dl (0.2-1.0)
--- NOTE | 2019-08-06 03:52 | NUR ---
DR POWERS NOTIFIED OF BP. NO NEW ORDERS AT THIS TIME
[2019-08-06 08:34] VITALS: BP 187/97
[2019-08-06 08:55] VITALS: BP 187/97
--- NOTE | 2019-08-06 11:19 | NUR ---
SW attempted to meet pt to complete initial assessment this morning; pt was not in pt room at the time. SW to continue to follow.
[2019-08-06 16:00] VITALS: BP 150/78
--- NOTE | 2019-08-06 16:57 | NUR ---
PT ARRIVED FROM ER ABOUT 1030. VITALS STABLE. LEFT FOR MRCP AND EGD AT 11. RETURNED ABOUT 1400. PT STABLE. IV PATENT. HAS BEEN RATING PAIN 9-10, GIVING PERC AND MORPHINE PER ORDER. PT RESTING QUIETLY EVERY TIME HE IS BEING CHECKED ON. DENIED NAUSEA/VOMITING. UP AD TRACEE. CALL LIGHT WITHIN REACH. WILL CONTINUE TO MONITOR.
[2019-08-06 19:30] VITALS: BP 133/86
[2019-08-07 04:01] LABS: HEMATOCRIT 27.1 % (42.0-52.0); MCH 25.4 pg (26.0-34.0); MCHC 32.1 g/dL (28.0-37.0); MCV 79.2 fL (80.0-100.0); RBC 3.42 mil/uL (4.50-6.00); RDW-CV 16.8 % (10.5-14.5); WBC 4.6 thou/uL (4.0-11.0)
[2019-08-07 04:06] LABS: HEMOGLOBIN 8.7 gm/dL (14.0-18.0)
[2019-08-07 04:21] LABS: ALBUMIN 2.7 g/dL (3.4-5.0); CALCIUM 8.5 mg/dL (8.5-10.1); CREATININE 0.8 mg/dL (0.6-1.3); MAGNESIUM 1.9 mg/dL (1.8-2.4); POTASSIUM 4.1 mmol/L (3.5-5.1); TOTAL BILIRUBIN 0.1 mg/dL (<0.1-1.0); TOTAL PROTEIN 6.1 g/dL (6.4-8.2)
--- NOTE | 2019-08-07 05:58 | NUR ---
PT ALERT AND ORIENTED. VSS ON RA. ASSESSMENT DOCUMENTED. PT SLEPT OFF AND ON THIS SHIFT. PO AND IV PAIN MEDS ALTERNATED AND GIVEN CONSISTENTLY THIS SHIFT. PT NEVER RTES GARNETT <[address] VENEGAS PAGED REGARDING PAIN MGT. MORPHINE GIVEN Q2 PER DR VENEGAS. PT TO URINALS THIS SHIFT FOR VOIDING. IV ABX INFUSED ORDERED. LAC WITH NS @1O0. NPO AFTER MN FOR SMALL BOWEL FOLLOW THROUGH. CALL LIGHT WITHIN REACH. HOURLY ROUNDINGS MADE. WILL CONTINUE TO MONITOR.
[2019-08-07 08:40] VITALS: BP 159/85
[2019-08-07 15:30] VITALS: BP 145/88
--- NOTE | 2019-08-07 16:04 | NUR ---
PATIENT NPO FOR CT ABD/PELVIS AND SBFT. CT RESULTS READ TO IRLANDA DANG AND RUBI ROWE. DR. HOFFMAN FROM SURGERY WILL SEE PATIENT THIS SHIFT, CONSULT RECALLED. PATIENT GIVEN PRN MORPHINE BUT STATED IT WASNT RELIEVING PAIN, DR. VENEGAS NOTIFIED AND PAIN MEDICATION CHANGED TO PRN DILAUDID AND OXYCODONE. IVF SL AND SCHED IV ABX GIVEN. PATIENT DID HAVE A BM THIS SHIFT. UP AD TRACEE WITHOUT DIFFICULTY. TOLERATING FULL LIQUID DIET. ID WAS CONSULTED THIS AFTERNOON FOR POSSIBLE NEED FOR OUTPATIENT ABX.
--- NOTE | 2019-08-07 16:08 | NUR ---
MET WITH PT TO DISCUSS HOME SITUATION/DC PLANNING. PT LIVES WITH S/O. IS INDEPENDENT. STATES HE HAS BEEN OFF WORK SINCE FEBRUARY AND WORRIED ABOUT FINANCES. HAS HEALTH INSURANCE BUT NOT DISABILITY INS. GAVE PT INFO TO CHECK WITH A COMPANY ABOUT APPLYING FOR DISABILITY AND MEDICARE/MEDICAID INFO IF NEEDED. PT USES NO EQUIPMENT. PLANS TO RETURN HOME AT DC. WILL FOLLOW
[2019-08-07 17:24] VITALS: BP 115/73
[2019-08-07 19:30] VITALS: BP 118/72
--- NOTE | 2019-08-08 05:11 | NUR ---
PT ALERT AND ORIENTED. VSS ON RA. ASSESSMENT DOCUMENTED. MEDS GIVEN PER EMAR. PAIN MEDS PO AND IV GIVEN THROUGH THE NIGHT. PAIN RATING SEEMS QUESTIONABLE TO ME. PT SLEPT VERY OFF AND ON. ANTICIPATING DC TODAY. CALL LIGHT WITHIN REACH. HOURLY ROUNDINGS MADE. WILL CONTINUE TO MONITOR.
--- NOTE | 2019-08-08 06:24 | NUR ---
GS CONSULT CALLED IN THIS AM FOR TRANSFER OF CARE TO DR PEREIRA'S TEAM. IT SEEMS DR PEREIRA'S TEAM HAVE ALREADY SEEN PT PRIOR TO CALLING IN CONSULT LALY MEYER WHO IS ONCALL HAVE ALREADY WRITTEN NOTE AND RECOMMENDATIONS REGARDING PT.
[2019-08-08 08:00] VITALS: BP 128/87
[2019-08-08] MEDS ORDERED: REGLAN 10 MG TA10 MG PO (11:41)
[2019-08-08] MEDS ORDERED: PROTONIX40 M1 PO (11:41)
[2019-08-08] MEDS ORDERED: CARAFATE 1 GM TA1 G1 PO (11:42)
[2019-08-08 11:56] VITALS: BP 128/87
--- NOTE | 2019-08-08 12:26 | NUR ---
PATIENT ADAVANCED TO REGULAR DIET, REFUSED TO STAY AND EAT LUNCH. IV DC'D, PATIENT CHANGED TO PO ABX AND 1ST DOSE GIVEN. SURGERY/GI/ID AND HOSPITALIST OK TO DISCHARGE. PATIENT VRBALIZES UNDERSTANDING OF PAPERWORK, SCRIPTS CALLED INTO [facility] PER PATIENT REQUEST. PATIENT AMBULATED OUT WITH NURSING STAFF AND ALL BELONGINGS.
--- NOTE | 2019-08-09 08:34 | CON ---
[address] [address] CONSULTATION Name: MARCOS RAMIRES Room: [address] IN M.R.#: [id number] Admission: 08/06/19 Attend Phys: Freddy Lange MD Discharge: 08/08/19 Date of : 68 Report #: [id number] THIS REPORT FOR: //name// CC: Freddy Ho DATE OF SERVICE: 08/08/2019 INFECTIOUS DISEASE CONSULTATION ATTENDING PHYSICIAN: Freddy Lange MD REASON FOR EVALUATION: Abdominal pain and suspected duodenitis. HISTORY OF PRESENT ILLNESS: Chart reviewed, the patient examined. This is a 48-year-old with known history of a perforated duodenal ulcer repaired in 02/2019. He has been not feeling well a number of days prior to his admission. Abdominal pain that had a bit of waxing and waning course, but generally was worsening. Did have associated nausea with emesis as well. At the time of his initial surgery, he had a cholecystostomy tube placed and it subsequently been removed due to concern about possible surgical related process to undergo CT abdomen and pelvis. It showed distended gallbladder with calcifications and gallbladder wall thickening with adjacent pericholecystic fluid. Fluid adjacent to the spleen was similar to prior study, although smaller with question of a chronic seroma versus less likely abscess. This led to a followup MRCP, it showed a retroperitoneal fat stranding and inflammation of right upper abdomen surrounding second portion of the duodenal, component of the duodenitis, irregular 1.4 x 2.5 cm pocket of fluid in the right upper abdomen. Similar since earlier to previous CT, may be fluid within the lumen though a small periduodenal abscess could not be excluded. Mild intra and extrahepatic ductal dilatation. No obstructing lesion or choledocholithiasis. Cultures were sterile thus far. Due to concerns, he was started empirically on therapy with piperacillin and tazobactam. He does feel somewhat better since admission, although at this point he is tolerating a clear liquid diet. ALLERGIES: None known. CURRENT MEDICATIONS: Include pantoprazole, enoxaparin, Zosyn, diazepam, sucralfate, metoclopramide, p.r.n. analgesics and antiemetics. PAST MEDICAL HISTORY: Chronic back pain, hypertension, anxiety, duodenal ulcer, did have hernia repair as well in May of this year. SOCIAL HISTORY: Former smoker, reports past history of ethanol, [place] [address] CONSULTATION Name: MARCOS RAMIRES Room: [address]#: [id number] Admission: 08/06/19 Attend Phys: Freddy Lange MD Discharge: 08/08/19 Date of : 68 Report #: [id number] FAMILY HISTORY: Noncontributory. REVIEW OF SYSTEMS: Otherwise, denies any significant pulmonary-related complaints. He has been active. PHYSICAL EXAMINATION: GENERAL: He appears somewhat chronically ill. He is pleasant, cooperative, pfxi-ie-gtfenovc distress. VITAL SIGNS: Temperature 97.6, review shows no fevers. Pulse 65, respirations 16, blood pressure 128/87. SKIN: Warm. HEENT: Normocephalic. Extraocular muscles intact. NECK: Supple. LUNGS: Diminished breath sounds, otherwise clear. HEART: Regular rate and rhythm. ABDOMEN: Soft, some mild tenderness, certainly no overt peritoneal signs. GENITOURINARY AND RECTAL: Deferred. LABORATORY DATA: Blood cultures sterile thus far. CT abdomen and pelvis from yesterday with contrast did show distended gallbladder with gallbladder wall thickening, small fluid collection adjacent to the spleen, gas and fluid collection adjacent to the second portion of duodenum, appears to communicate with duodenum, question of a dilated duodenal diverticulum. Electrolytes; sodium 138, potassium 4.1, chloride 103, bicarbonate is 29, anion gap of 6, BUN and creatinine 7 and 0.8. LFTs unremarkable. Albumin of 2.7, total protein of 6.1, estimated GFR of 103. White count of 4.6, H and H of 8.7/27.1, platelets of 249. Lipase was 44. ASSESSMENT: Abdominal pain that certainly has a degree of inflammation on multiple studies, otherwise less defined. He is not systemically ill at this point, does state he feels improved. It is reasonable to transition to oral antibiotics whether he had a transient issue such as a stone that passed, it is not entirely clear. Noted watchful waiting from surgery standpoint. Advance his diet as tolerated, then will give us some insight as well. Encourage him to be up and moving, monitor expectantly. <ELECTRONICALLY SIGNED> By: Noe Frey MD 08/09/19 0834 1029 [id number] Frey MD /nt
--- NOTE | 2019-08-11 13:47 | PATH ---
[address] [address] PATHOLOGY RPT PROCEDURE Name: MARCOS PECK Room: [address] IN M.R.#: [id number] Admission: 08/06/19 Date of : 68 Discharge: 08/08/19 Report #: [id number] Path Case #: [id number] LCA Accession Number: [id number] . 01 Material submitted: . stomach - BIOPSY OF ULCER OF DUODENUM AND ANTRUM . 01 Clinical history: . None provided . 02 Diagnosis: Biopsy of ulcer of duodenum and antrum: - Moderate nonspecific chronic and active antral gastritis with intestinal metaplasia and abundant eosinophils, negative for Helicobacter pylori organisms, granulomas and dysplasia. See comment. (DUNIA:antony; 08/08/2019) MBR 08/08/2019 1054 Local . 02 Comment: The biopsies represent predominantly gastric antral-type mucosa with intestinal metaplasia noted and a fragment possibly representing duodenal/small intestinal mucosa is also present but which could also represent intestinal metaplasia of antral mucosa. Abundant eosinophils suggest an allergic component. (DUNIA:antony; 08/08/2019) . Special stain: H. pylori immuno . 02 Electronically signed: . Logan Negrete MD, Pathologist NPI- [id number] . 01 Gross description: . The specimen is received in formalin, labeled "Marcos Peck, biopsy of ulcer of duodenum and antrum". Received are three segments of pale chaney soft tissue ranging in size from 0.2 to 0.5 cm in maximum dimensions. The specimen is submitted entirely in cassette A1. (CAA; 08/07/2019) QAC/QAC 08/07/2019 1432 Local . 02 Pathologist provided ICD-10: K29.50 . 02 CPT . 680500, P46469 Specimen Comment: A courtesy copy of this report has been sent to Specimen Comment: [phone], , . Specimen Comment: Report sent to ,DR FLORES / [place] [address] PATHOLOGY RPT PROCEDURE Name: MARCOS PECK Room: [address] IN M.R.#: [id number] Admission: 08/06/19 Date of : 68 Discharge: 08/08/19 Report #: [id number] Path Case #: [id number] Performed at: 01 [facility] [address], [place], [place] [id number] MD Mahendra Joseph MD Phone: [phone] Performed at: 02 [facility] [address], [place], [place] [id number] MD Logan Negrete MD Phone: [phone]
--- NOTE | 2019-08-22 14:47 | CON ---
[address] [address] CONSULTATION Name: MARCOS RAMIRES Room: [address] IN .R.#: [id number] Admission: 08/06/19 Attend Phys: Freddy Lange MD Discharge: 08/08/19 Date of : 68 Report #: [id number] THIS REPORT FOR: //name// CC: Freddy Ho DICTATED BY: Kaycee Muñiz [facility] DATE OF SERVICE: 08/06/2019 PRIMARY CARE PHYSICIAN: Dr. Alexa Ho. REASON FOR CONSULTATION: Abdominal pain, history of duodenal ulcer. Please note at the time of this dictation, the patient was seen and physically examined by myself. HISTORY OF PRESENT ILLNESS: This is a 48-year-old male who presented to the Emergency Room with worsening of abdominal pain, which has progressively gotten worse, which started over the past week. He has experienced nausea and vomiting. He denies any hematemesis with this at this time. He states his whole entire abdomen is painful, especially in the upper quadrant areas. He does admit here in the last week or two, he has been taking some Aleve to help with his chronic back pain as well. ALLERGIES: No known drug allergies. MEDICATIONS: From home include pantoprazole, Percocet, Bentyl, Valium and Claritin. PAST MEDICAL HISTORY: Chronic back pain, hypertension and anxiety. PAST SURGICAL HISTORY: He had a duodenal ulcer perforation with surgery in 02/2019 and a hernia repair in May of this year. FAMILY HISTORY: Noncontributory. Denies any GI or female cancers. SOCIAL HISTORY: History of alcohol use when he was much younger; none since prior to before his first surgery in February and now only on occasion socially. Tobacco use, he has not had any tobacco, except on rare occasion smoking since his first surgery in February. Denies any illegal drug use. REVIEW OF SYSTEMS: Twelve-point review of systems is essentially negative, except what [place] [address] CONSULTATION Name: MARCOS RAMIRES Room: [address] IN [facility].#: [id number] Admission: 08/06/19 Attend Phys: Freddy Lange MD Discharge: 08/08/19 Date of : 68 Report #: [id number] PHYSICAL EXAMINATION: VITAL SIGNS: Temperature 36.3, pulse 77, respirations 14 and blood pressure 187/97. HEART: Regular rate and rhythm. LUNGS: Clear. ABDOMEN: Soft. Positive bowel sounds in all 4 quadrants, with tenderness noted in the upper and lower quadrants. LABORATORY DATA: Hemoglobin is 11, white count is 9.9 and platelets 249. GFR is 90. Total bilirubin 0.2, alkaline phosphatase 163, ALT [address] AST is 24. CT showed 9-mm CBD dilatation, distended gallbladder with some wall thickening and calcification noted and some antrum wall thickening as well. Ultrasound showed distended gallbladder with questionable small polyp. Lipase was normal. IMPRESSION: 1. Abdominal pain. 2. Nausea and vomiting. 3. Dilated common bile duct. 4. History of duodenal perforation in February of this year. 5. History of nonsteroidal anti-inflammatory drug use. PLAN: 1. EGD today with Dr. Coates. 2. MRCP to further evaluate his dilated CBD. 3. GGTP to add on the labs. 4. Further recommendations to be made once the procedure and imaging has been performed. Thank you for allowing us to participate in this patient's care. Please do not hesitate to call with any questions in regard to this consult. <ELECTRONICALLY SIGNED> By: Benjamin Coates MD 08/22/19 1447 1035 [id number] Coates MD /nt
== END 2019-08-08 12:33 | disposition home or self-care (01) | DRG 384 ==
LOC: M.ERS 23:41 → M.TBA-ER 08-06 05:06 → M.3W 08-06 05:06
PROVIDERS: Emergency Medicine; Internal Medicine; ADMIT Internal Medicine
PROC: 0DB68ZX Excision of Stomach, Via Natural or Artificial Opening Endoscopic, Diagnostic (ICD-10-PCS; principal; 2019-08-06)
PROC: 0DB98ZX Excision of Duodenum, Via Natural or Artificial Opening Endoscopic, Diagnostic (ICD-10-PCS; principal; 2019-08-06)
DX: K25.9 Gastric ulcer, unspecified as acute or chronic, without hemorrhage or perforation (principal); M54.9 Dorsalgia, unspecified; G89.29 Other chronic pain; F41.9 Anxiety disorder, unspecified; K29.80 Duodenitis without bleeding; I10 Essential (primary) hypertension; K26.9 Duodenal ulcer, unspecified as acute or chronic, without hemorrhage or perforation; D50.9 Iron deficiency anemia, unspecified; K21.0 Gastro-esophageal reflux disease with esophagitis; K44.9 Diaphragmatic hernia without obstruction or gangrene; K31.84 Gastroparesis; Z79.899 Other long term (current) drug therapy; Z87.891 Personal history of nicotine dependence; Z28.21 Immunization not carried out because of patient refusal; Z80.1 Family history of malignant neoplasm of trachea, bronchus and lung; Z79.1 Long term (current) use of non-steroidal anti-inflammatories (NSAID)

== ENCOUNTER 2019-09-17 22:48 | Emergency (ER) | payer OTHER ==
[~2019-09-17] VITALS: Ht 190.5 cm; Wt 86.2 kg
[~2019-09-17 22:48] MED LIST changes: +CARAFATE 1 GM TA1 G1 PO; +CLARITIN10 MG PO; +REGLAN 10 MG TA10 MG PO
[2019-09-17] MEDS ORDERED: SOMA350 MG PO (23:02)
[2019-09-17] MEDS ORDERED: LYRICA150 MG PO (23:03)
[2019-09-17] MEDS ORDERED: REGLAN 10 MG TA10 MG PO (23:03)
[2019-09-17] MEDS ORDERED: FUROSEMIDE 20 M20 MG PO (23:03)
[2019-09-17 23:49] LABS: ABSOLUTE BASOPHILS 0.1 thou/uL (0.0-0.2); ABSOLUTE EOSINOPHILS 0.2 thou/uL (0.0-0.7); ABSOLUTE LYMPHOCYTES 1.2 thou/uL (0.8-5.3); ABSOLUTE MONOCYTES 0.6 thou/uL (0.0-1.2); ABSOLUTE NEUTROPHILS 4.4 thou/uL (1.6-8.1); EOSINOPHILS 3.3 %; HEMATOCRIT 27.9 % (42.0-52.0); HEMOGLOBIN 9.1 gm/dL (14.0-18.0); LYMPHOCYTES 18.3 %; MCH 23.3 pg (26.0-34.0); MCHC 32.7 g/dL (28.0-37.0); MCV 71.3 fL (80.0-100.0); MONOCYTES 9.2 %; NUCLEATED RBCS 0 /100WBC; PLATELET COUNT* 365 thou/uL (150-400); POLYS 68.2 %; RBC 3.91 mil/uL (4.50-6.00); RDW-CV 16.8 % (10.5-14.5); WBC 6.5 thou/uL (4.0-11.0)
[2019-09-17 23:57] LABS: CALCIUM 8.4 mg/dL (8.5-10.1); CREATININE 1.1 mg/dL (0.6-1.3); POTASSIUM 3.5 mmol/L (3.5-5.1)
[2019-09-18 00:01] LABS: ALBUMIN 3.2 g/dL (3.4-5.0); TOTAL BILIRUBIN 0.1 mg/dL (<0.1-1.0); TOTAL PROTEIN 6.6 g/dL (6.4-8.2)
[2019-09-18 01:25] VITALS: BP 145/81
[2019-09-18 02:51] LABS: ANISOCYTOSIS 2+; MICROCYTES 2+; POIKILOCYTOSIS 2+
[2019-09-18 02:52] LABS: MACROCYTES Occasional; SCHISTOCYTES Occasional; TARGET CELLS Occasional
== END 2019-09-18 01:25 | disposition home or self-care (01) ==
LOC: M.ERS 22:48
PROVIDERS: Personal Emergency Response Attendant
DX: G89.29 Other chronic pain (principal); R10.10 Upper abdominal pain, unspecified; R60.0 Localized edema; I10 Essential (primary) hypertension; F41.9 Anxiety disorder, unspecified; F17.210 Nicotine dependence, cigarettes, uncomplicated

== ENCOUNTER 2019-09-28 13:10 | Emergency (ER) | payer OTHER ==
[~2019-09-28] VITALS: Ht 190.5 cm; Wt 86.2 kg
[~2019-09-28 13:10] MED LIST changes: +FUROSEMIDE 20 M20 MG PO; +LYRICA150 MG PO; +SOMA350 MG PO
[2019-09-28 13:51] LABS: ABSOLUTE BASOPHILS 0.1 thou/uL (0.0-0.2); ABSOLUTE EOSINOPHILS 0.2 thou/uL (0.0-0.7); ABSOLUTE LYMPHOCYTES 1.2 thou/uL (0.8-5.3); ABSOLUTE MONOCYTES 0.4 thou/uL (0.0-1.2); BASOPHILS 1.5 %; EOSINOPHILS 3.6 %; HEMATOCRIT 30.3 % (42.0-52.0); HEMOGLOBIN 9.7 gm/dL (14.0-18.0); LYMPHOCYTES 24.8 %; MCH 22.2 pg (26.0-34.0); MCV 69.3 fL (80.0-100.0); MONOCYTES 7.5 %; MPV 8.5 fl. (7.2-11.1); NUCLEATED RBCS 0 /100WBC; PLATELET COUNT* 279 thou/uL (150-400); POLYS 62.6 %; RBC 4.38 mil/uL (4.50-6.00); WBC 4.8 thou/uL (4.0-11.0)
[2019-09-28 13:53] LABS: CALCIUM 8.1 mg/dL (8.5-10.1); CREATININE 1.1 mg/dL (0.6-1.3); POTASSIUM 3.7 mmol/L (3.5-5.1)
[2019-09-28 13:57] LABS: ALBUMIN 3.7 g/dL (3.4-5.0); TOTAL BILIRUBIN 0.2 mg/dL (<0.1-1.0); TOTAL PROTEIN 7.3 g/dL (6.4-8.2)
[2019-09-28 15:07] VITALS: BP 124/76
[2019-09-28] MEDS ORDERED: ZOFRAN ODT4 MG SUBLING (15:11)
[2019-09-28 15:25] LABS: MICROCYTES 3+
[2019-09-28 15:26] LABS: ANISOCYTOSIS 1+; HYPOCHROMASIA 2+; PLATELET ESTIMATE ADEQUATE
== END 2019-09-28 15:07 | disposition home or self-care (01) ==
LOC: M.ERS 13:10
PROVIDERS: Family Medicine
DX: R10.13 Epigastric pain (principal); G89.29 Other chronic pain; I10 Essential (primary) hypertension; F41.9 Anxiety disorder, unspecified

== ENCOUNTER 2020-06-07 03:37 | Emergency (ER) | payer OTHER ==
[~2020-06-07] VITALS: Ht 182.9 cm; Wt 86.2 kg
[~2020-06-07 03:37] MED LIST changes: +ZOFRAN ODT4 MG SUBLING
[2020-06-07 04:21] LABS: HEMATOCRIT 26.5 % (42.0-52.0); MCH 20.6 pg (26.0-34.0); MCHC 26.4 g/dL (28.0-37.0); MCV 78.3 fL (80.0-100.0); MPV 8.9 fl. (7.2-11.1); NUCLEATED RBCS 1 /100WBC; PLATELET COUNT* 627 thou/uL (150-400); RBC 3.38 mil/uL (4.50-6.00)
[2020-06-07 04:54] LABS: WBC 43.3 thou/uL (4.0-11.0)
[2020-06-07 05:00] LABS: BE -22.4 mmol/L (-2 to +3)
[2020-06-07 05:03] LABS: PCO2 80.4 mmHg (35.0-45.0); pH 6.776 (7.340-7.450)
[2020-06-07 05:04] LABS: PO2 207.7 mmHg (75.0-100.0)
[2020-06-07 05:08] LABS: ALBUMIN 1.7 g/dL (3.4-5.0); CALCIUM 7.1 mg/dL (8.5-10.1); CREATININE 2.2 mg/dL (0.6-1.3); MAGNESIUM 3.5 mg/dL (1.8-2.4); POTASSIUM 5.4 mmol/L (3.5-5.1); TOTAL BILIRUBIN 0.8 mg/dL (<0.1-1.0); TOTAL PROTEIN 5.6 g/dL (6.4-8.2)
[2020-06-07 05:13] LABS: INR 1.4; PROTIME 14.7 Seconds (9.20-11.50)
[2020-06-07 05:14] LABS: URINE BLOOD NEGATIVE (Negative); URINE CLARITY CLEAR; URINE COLOR YELLOW; URINE GLUCOSE-RANDOM NEGATIVE (Negative); URINE KETONES NEGATIVE (Negative); URINE LEUKOCYTES-REFLEX NEGATIVE (Negative); URINE NITRITE-REFLEX NEGATIVE (Negative); URINE PROTEIN TRACE (Negative); URINE SPECIFIC GRAVITY 1.025 (1.005-1.030)
[2020-06-07 05:21] LABS: ICTOTEST (BILI CONFIRMATORY) Negative (Negative); URINE BILIRUBIN 1+ (Negative)
[2020-06-07 07:06] LABS: ABSOLUTE EOSINOPHILS 0.4 thou/uL (0.0-0.7); ABSOLUTE MONOCYTES 1.7 thou/uL (0.0-1.2); ABSOLUTE NEUTROPHILS 25.1 thou/uL (1.6-8.1); ATYPICAL LYMPHS 2 %; METAMYELOCYTES 5 %; MYELOCYTES 6 %; PLATELET ESTIMATE INCREASED
[2020-06-07 07:07] LABS: ANISOCYTOSIS 1+; HYPOCHROMASIA 3+; MICROCYTES 3+; TOXIC GRANULATION 3+
[2020-06-07 07:08] LABS: SCHISTOCYTES 1+
[2020-06-07 07:23] LABS: BE -22.7 mmol/L (-2 to +3)
[2020-06-07 07:25] LABS: PCO2 53.8 mmHg (35.0-45.0); PO2 157.8 mmHg (75.0-100.0); pH 6.873 (7.340-7.450)
[2020-06-07 09:31] VITALS: BP 95/45
--- NOTE | 2020-06-07 10:48 | EKG ---
[place] [address] ELECTROCARDIOGRAM REPORT Name: MARCOS RAMIRES Room: 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1970 Requested By: Rupali Oakley Order Number: [id number] MD: Jose Justin Measurements Intervals [place] Rate: 52 P: 76 DE: 174 QRS: 114 QRSD: 117 T: 207 QT: 412 QTc: 384 Interpretive Statements Sinus bradycardia Atrial premature complexes in couplets Nonspecific intraventricular conduction delay Anteroseptal infarct, acute Compared to ECG 06/16/2019 02:11:24 Atrial premature complex(es) now present Intraventricular conduction delay now present Myocardial infarct finding now present Sinus rhythm no longer present Electronically Signed On 06-07-2020 10:48:44 CDT by Jose Justin [email or web address] <ELECTRONICALLY SIGNED> By: Jose Justin MD, FAC 06/07/20 1048 0344 0344 Jose Justin MD, [facility] /EPI
--- NOTE | 2020-06-07 10:50 | EKG ---
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1970 Requested By: Rupali Oakley Order Number: [id number] Reading MD: Jose Justin Measurements Intervals [place] Rate: 51 P: 71 SD: 208 QRS: 121 QRSD: 167 T: 214 QT: 373 QTc: 344 Interpretive Statements Sinus bradycardia Borderline prolonged SD interval LPFB Inferior infarct, age indeterminate Anteroseptal infarct, acute Compared to ECG 06/07/2020 03:44:15 Atrial premature complex(es) no longer present Myocardial infarct finding still present Electronically Signed On 06-07-2020 10:49:58 CDT by Jose Justin [email or web address] <ELECTRONICALLY SIGNED> By: Jose Justin MD, [facility] 06/07/20 1049 0345 0345 Jose Justin MD, [facility] /EPI
== END 2020-06-07 09:36 | disposition still patient (30) ==
LOC: M.ERS 03:37
PROVIDERS: Emergency Medicine
DX: I46.9 Cardiac arrest, cause unspecified (principal); N19 Unspecified kidney failure; D64.9 Anemia, unspecified; E87.2 Acidosis; I10 Essential (primary) hypertension; G89.29 Other chronic pain; F41.9 Anxiety disorder, unspecified; Z20.828 Contact with and (suspected) exposure to other viral communicable diseases